=== PATIENT | male | born 1955 | race Caucasian/White ===

== ENCOUNTER → 2017-11-08 12:35 | Outpatient (CLI) | payer MEDICARE, MEDICAID, SELFPAY ==
[2017-11-08 18:17] LABS: Amphetamine/Metha Screen,Urine Negative ng/mL (<1000); Barbiturates Screen,Urine Negative ng/mL (<200); Benzodiazepines Screen,Urine Positive ng/mL (200); Cannabinoid Screen,Urine Negative ng/mL (<50); Cocaine Screen,Urine Negative ng/g (<300); Methadone Screen,Urine Negative ng/mL (<300); Opiate Screen,Urine Negative ng/mL (<300); Phencyclidine Screen,Urine Negative ng/mL (<25)
== END ==
PROVIDERS: Visit Provider Emergency Medicine
DX: Z79.899 Other long term (current) drug therapy (principal)
CPT/HCPCS: 80305

== ENCOUNTER → 2018-02-03 14:47 | Outpatient (REF) | payer MEDICARE, MEDICAID, SELFPAY ==
[2018-02-03 18:30] LABS: Amphetamine/Metha Screen,Urine Negative ng/mL (<1000); Barbiturates Screen,Urine Negative ng/mL (<200); Benzodiazepines Screen,Urine Positive ng/mL (200); Cannabinoid Screen,Urine Negative ng/mL (<50); Cocaine Screen,Urine Negative ng/g (<300); Methadone Screen,Urine Negative ng/mL (<300); Opiate Screen,Urine Negative ng/mL (<300); Phencyclidine Screen,Urine Negative ng/mL (<25)
== END ==
LOC: LAB 14:47
PROVIDERS: Visit Provider Emergency Medicine
DX: Z79.899 Other long term (current) drug therapy (principal)
CPT/HCPCS: 80305

== ENCOUNTER → 2018-10-29 13:20 | Outpatient (CLI) | payer MEDICARE, MEDICAID, SELFPAY ==
[2018-10-29 14:01] LABS: Basophils % 0.4 % (0.1-2.0); Eosinophils # 0.1 K/mm3 (0.0-0.4); Eosinophils % 0.8 % (0.1-12.0); Hematocrit 46.3 % (42.0-52.0); Hemoglobin 15.2 g/dL (14.1-18.0); Lymphocytes # 1.9 K/mm3 (0.7-4.5); Lymphocytes % 27.6 % (10-50); Mean Corpuscular HGB Conc 32.8 g/dL (31.8-35.4); Mean Corpuscular Hemoglobin 29.1 pg (27.0-31.2); Mean Corpuscular Volume 88.7 fl (80-94); Monocytes # 0.3 K/mm3 (0.1-1.0); Monocytes % 4.5 % (1.7-9.3); Neutrophils # 4.6 K/mm3 (1.8-7.8); Neutrophils % 66.6 % (37.0-80.0); Platelet Count 254 K/mm3 (142-424); Red Blood Count 5.22 M/mm3 (4.60-6.20); Red Cell Distribution Width 13.6 % (11.5-17.5); White Blood Count 6.9 K/mm3 (4.8-10.8)
[2018-10-29 14:49] LABS: Alanine Aminotransferase 25 U/L (12-78); Albumin Level 4.2 gm/dL (3.4-5.0); Albumin/Globulin Ratio 1.1 (1.1-1.8); Alkaline Phosphatase 81 U/L (46-116); Anion Gap 13.9 mEq/L (5-15); Aspartate Amino Transferase 21 U/L (15-37); Bilirubin,Total 0.4 mg/dL (0.2-1.0); Blood Urea Nitrogen 16 mg/dL (7-18); Carbon Dioxide 29 mmol/L (21.0-32.0); Chloride 104 mmol/L (98-107); Chol/HDL Ratio 4.3 (1-3.5); Cholesterol 208 mg/dL (140-200); Estimated Glomerular Filt Rate 75 ml/min (>60); Free T4 (Free Thyroxine) 0.92 ng/dl (0.76-1.46); GFR (African American) 91 ML/MIN (>60); Globulin 3.7 gm/dl (1.3-3.2); Glucose 100 mg/dL (74-106); HDL Cholesterol 48 mg/dL (27-67); LDL Cholesterol 133 mg/dL (0-130); Potassium 4.9 mmoL/L (3.5-5.1); Sodium 142 mmol/L (136-145); Thyroid Stimulating Hormone 1.66 uIU/ml (0.358-3.740); Total Protein,Serum 7.9 gm/dL (6.4-8.2); Triglycerides 136 mg/dL (30-200); VLDL Cholesterol 27 mg/dL (0-40)
[2018-10-29 15:14] LABS: Amphetamine/Metha Screen,Urine Negative ng/mL (<1000); Barbiturates Screen,Urine Negative ng/mL (<200); Benzodiazepines Screen,Urine Negative ng/mL (<200); Cannabinoid Screen,Urine Negative ng/mL (<50); Cocaine Screen,Urine Negative ng/mL (<300); Methadone Screen,Urine Negative ng/mL (<300); Opiate Screen,Urine Negative ng/mL (<300); Phencyclidine Screen,Urine Negative ng/mL (<25)
== END ==
PROVIDERS: Visit Provider Emergency Medicine
DX: I10 Essential (primary) hypertension (principal); Z79.899 Other long term (current) drug therapy
CPT/HCPCS: 80053; 80061; 80305; 84439; 84443; 85025

== ENCOUNTER → 2019-01-23 13:48 | Outpatient (CLI) | payer MEDICARE, MEDICAID, SELFPAY ==
[2019-01-23 14:59] LABS: Amphetamine/Metha Screen,Urine Negative ng/mL (<1000); Barbiturates Screen,Urine Negative ng/mL (<200); Benzodiazepines Screen,Urine Positive ng/mL (<200); Cannabinoid Screen,Urine Negative ng/mL (<50); Cocaine Screen,Urine Negative ng/mL (<300); Methadone Screen,Urine Negative ng/mL (<300); Opiate Screen,Urine Negative ng/mL (<300); Phencyclidine Screen,Urine Negative ng/mL (<25)
== END ==
PROVIDERS: Visit Provider Emergency Medicine
DX: Z79.899 Other long term (current) drug therapy (principal)
CPT/HCPCS: 80305

== ENCOUNTER → 2019-02-11 12:40 | Outpatient (CLI) | payer MEDICARE, MEDICAID, SELFPAY ==
--- NOTE | 2019-02-11 12:43 | NM_ITS ---
CARDIOLITE SPECT MYOCARDIAL PERFUSION LEXISCAN, REST AND STRESS: History: Coronary disease, hypertension, hyperlipidemia, tobacco use, family history, chest pain, shortness of breath and fatigue Procedure: Patient received a 0.4 mg of intravenous Lexiscan, resting heart rate was 65 bpm resting blood pressure 147/92, with Lexiscan maximum heart rate achieved was 95 bpm which is less than 85% of the maximum predicted heart rate and a blood pressure was 140/84. With Lexiscan patient complained of chest pressure and shortness of breath Electrocardiogram: Resting electrocardiogram showed sinus rhythm, with Lexiscan there is less than 1.[address] segment depression noted from the baseline EKG. The EKG portion of the Lexiscan Myoview is nondiagnostic. Cardiac stress and resting SPECT images: Cardiac stress and resting SPECT images were obtained using technetium 99 Myoview 31.8 mCi at stress and 9.8 mCi at rest. Gated SPECT further analysis of segmental wall motion and calculation of the ejection fraction also done. Cardiac stress and resting SPECT show uniform myocardial activity without segmental perfusion abnormality, computer derived ejection fraction is 41% with no regional wall motion abnormality, right ventricle is normal size and contractility. Conclusion: 1. The EKG portion of the Lexiscan Myoview is nondiagnostic. 2. No scintigraphic evidence of reversible ischemia seen, computer derived ejection fraction is 41% with no regional wall motion abnormality, right ventricle is normal size and contractility. Visually estimated ejection fraction appears to be 50%.
--- NOTE | 2019-02-11 14:11 | HMH.ITSHM ---
Current Home Medications as stated by this patient Kaleb Austin or new accounts representative. []gabapentin xanex doxizosin aspirin
== END ==
PROVIDERS: PCP Emergency Medicine; Visit Provider Physician Assistant
DX: I25.119 Atherosclerotic heart disease of native coronary artery with unspecified angina pectoris (principal); R07.9 Chest pain, unspecified
CPT/HCPCS: 78452; 93017; A9502; J2785

== ENCOUNTER → 2019-04-09 13:01 | Outpatient (CLI) | payer MEDICARE, MEDICAID, SELFPAY ==
--- NOTE | 2019-04-09 13:21 | XR_ITS ---
PROCEDURE: XR CHEST 2V CLINICAL HISTORY: cough, granuloma on LHC Cough, chest pain tightness, smoker COMPARISON: CXR1 CHEST-PORTABLE from 05/08/2015 FINDINGS: The cardiomediastinal silhouette and pulmonary vascularity are within normal limits. COPD with hyperinflation and coarsening of the bronchovascular markings. No acute bony abnormalities. IMPRESSION: COPD, no acute finding Dictated by: Vern Maloney MD 04/09/2019 13:53 Signed by: <Electronically signed by Vern Maloney MD in [facility]> 04/09/2019 13:53
== END ==
PROVIDERS: PCP Emergency Medicine; Visit Provider Urology
DX: I10 Essential (primary) hypertension (principal); I25.10 Atherosclerotic heart disease of native coronary artery without angina pectoris; R06.02 Shortness of breath; Z72.0 Tobacco use
CPT/HCPCS: 71046; 93306

== ENCOUNTER → 2019-07-22 14:44 | Outpatient (CLI) | payer MEDICARE, MEDICAID, SELFPAY ==
[2019-07-22 16:10] LABS: Amphetamine/Metha Screen,Urine Negative ng/mL (<1000); Barbiturates Screen,Urine Negative ng/mL (<200); Benzodiazepines Screen,Urine Positive ng/mL (<200); Cannabinoid Screen,Urine Negative ng/mL (<50); Cocaine Screen,Urine Negative ng/mL (<300); Methadone Screen,Urine Negative ng/mL (<300); Opiate Screen,Urine Negative ng/mL (<300); Phencyclidine Screen,Urine Negative ng/mL (<25)
== END ==
PROVIDERS: Visit Provider Emergency Medicine
DX: G89.29 Other chronic pain (principal)
CPT/HCPCS: 80305

== ENCOUNTER → 2019-10-19 13:38 | Outpatient (CLI) | payer MEDICARE, MEDICAID, SELFPAY ==
[2019-10-19 15:51] LABS: Barbiturates Screen,Urine Negative ng/ml (<200)
[2019-10-19 15:52] LABS: Amphetamine/Metha Screen,Urine Negative ng/ml (<1000); Benzodiazepines Screen,Urine Positive ng/ml (<200)
[2019-10-19 15:54] LABS: Cannabinoid Screen,Urine Negative ng/ml (<50)
[2019-10-19 15:55] LABS: Cocaine Screen,Urine Negative ng/ml (<300); Methadone Screen,Urine Negative ng/ml (<300)
[2019-10-19 15:57] LABS: Opiate Screen,Urine Negative ng/ml (<300); Phencyclidine Screen,Urine Negative ng/ml (<25)
== END ==
PROVIDERS: Visit Provider Emergency Medicine
DX: Z79.899 Other long term (current) drug therapy (principal)
CPT/HCPCS: 80305

== ENCOUNTER → 2019-12-28 15:14 | Outpatient (CLI) | payer MEDICARE, MEDICAID, SELFPAY ==
[2019-12-28 17:40] LABS: Prostate Specific Ag Screen 1.5 ng/ml (0.0-4.0)
== END ==
PROVIDERS: Visit Provider Urology
DX: Z12.5 Encounter for screening for malignant neoplasm of prostate (principal)
CPT/HCPCS: 36415; G0103

== ENCOUNTER → 2020-01-21 09:48 | Outpatient (CLI) | payer MEDICARE, MEDICAID, SELFPAY | PROVIDERS: PCP Emergency Medicine; Visit Provider Emergency Medicine | DX: J44.9 Chronic obstructive pulmonary disease, unspecified (principal) | CPT/HCPCS: 94060; 94618; 94726; 94729 ==

== ENCOUNTER → 2020-10-10 14:38 | Outpatient (CLI) | payer MEDICARE, MEDICAID, SELFPAY ==
[2020-10-10 16:01] LABS: Chloride 105 mmol/L (98-107); Potassium 4.3 mmoL/L (3.5-5.1); Sodium 140 mmol/L (136-145)
[2020-10-10 16:03] LABS: Blood Urea Nitrogen 20 mg/dl (9-20); Estimated Glomerular Filt Rate 85 ml/min (>60); GFR (African American) 102 ML/MIN (>60)
[2020-10-10 16:04] LABS: Alanine Aminotransferase 20 U/L (12-78); Albumin Level 4.6 g/dl (3.5-5.0); Albumin/Globulin Ratio 1.4 (1.1-1.8); Alkaline Phosphatase 80 U/L (38-126); Anion Gap 11.3 mEq/L (5-15); Aspartate Amino Transferase 26 U/L (17-59); Basophils % 0.5 % (0.1-2.0); Bilirubin,Total 0.6 mg/dl (0.2-1.3); Calcium 9.8 mg/dl (8.4-10.2); Carbon Dioxide 28 mmol/L (22.0-30.0); Cholesterol 210 mg/dl (140-200); Eosinophils # 0.1 K/mm3 (0.0-0.4); Eosinophils % 1.7 % (0.1-12.0); Globulin 3.2 g/dL (1.3-3.2); Glucose 101 mg/dl (74-100); Hematocrit 43.9 % (42.0-52.0); Hemoglobin 14.6 g/dL (14.1-18.0); Lymphocytes # 1.8 K/mm3 (0.7-4.5); Lymphocytes % 30.3 % (10-50); Mean Corpuscular HGB Conc 33.4 g/dL (31.8-35.4); Mean Corpuscular Hemoglobin 29.2 pg (27.0-31.2); Mean Corpuscular Volume 87.4 fl (80-94); Mean Platelet Volume 8.8 fl (7.4-10.4); Monocytes # 0.4 K/mm3 (0.1-1.0); Monocytes % 7.4 % (1.7-9.3); Neutrophils # 3.5 K/mm3 (1.8-7.8); Neutrophils % 60.2 % (37.0-80.0); Platelet Count 230 K/mm3 (142-424); Red Blood Count 5.02 M/mm3 (4.60-6.20); Red Cell Distribution Width 13.9 % (11.5-17.5); Total Protein,Serum 7.8 g/dl (6.3-8.2); Triglycerides 124 mg/dl (30-150); VLDL Cholesterol 25 mg/dL (0-40); White Blood Count 5.8 K/mm3 (4.8-10.8)
[2020-10-10 16:05] LABS: Chol/HDL Ratio 4.3 (1-3.5); HDL Cholesterol 49 mg/dl (40-60)
[2020-10-10 16:15] LABS: Direct LDL Cholesterol 115.53 mg/dL (100-129)
[2020-10-10 16:25] LABS: 25-OH Vitamin D, Total 26.5 ng/mL (30-100)
[2020-10-10 16:35] LABS: Thyroid Stimulating Hormone 1.92 uIU/mL (0.465-4.68)
[2020-10-10 21:09] LABS: Barbiturates Screen,Urine Negative ng/ml (<200)
[2020-10-10 21:10] LABS: Benzodiazepines Screen,Urine Positive ng/ml (<200)
[2020-10-10 21:11] LABS: Amphetamine/Metha Screen,Urine Negative ng/ml (<1000); Cannabinoid Screen,Urine Negative ng/ml (<50)
[2020-10-10 21:12] LABS: Cocaine Screen,Urine Negative ng/ml (<300)
[2020-10-10 21:13] LABS: Methadone Screen,Urine Negative ng/ml (<300); Opiate Screen,Urine Negative ng/ml (<300)
[2020-10-10 21:14] LABS: Phencyclidine Screen,Urine Negative ng/ml (<25)
== END ==
PROVIDERS: Visit Provider Emergency Medicine
DX: R53.83 Other fatigue (principal); E78.5 Hyperlipidemia, unspecified; E55.9 Vitamin D deficiency, unspecified; N52.9 Male erectile dysfunction, unspecified; G89.29 Other chronic pain
CPT/HCPCS: 80053; 80061; 80305; 82306; 84439; 84443; 85025

== ENCOUNTER → 2021-01-10 13:56 | Outpatient (CLI) | payer MEDICARE, MEDICAID, SELFPAY ==
[2021-01-10 14:20] LABS: Barbiturates Screen,Urine Negative ng/ml (<200)
[2021-01-10 14:21] LABS: Benzodiazepines Screen,Urine Positive ng/ml (<200)
[2021-01-10 14:22] LABS: Cocaine Screen,Urine Negative ng/ml (<300); Methadone Screen,Urine Negative ng/ml (<300)
[2021-01-10 14:23] LABS: Opiate Screen,Urine Negative ng/ml (<300)
[2021-01-10 14:24] LABS: Phencyclidine Screen,Urine Negative ng/ml (<25)
[2021-01-10 14:57] LABS: Amphetamine/Metha Screen,Urine Negative ng/ml (<1000)
[2021-01-10 16:37] LABS: Cannabinoid Screen,Urine Negative ng/ml (<50)
== END ==
PROVIDERS: Visit Provider Emergency Medicine
DX: G89.29 Other chronic pain (principal); M54.9 Dorsalgia, unspecified
CPT/HCPCS: 80305

== ENCOUNTER → 2021-01-16 15:15 | Outpatient (CLI) | payer MEDICARE, MEDICAID, SELFPAY ==
[2021-01-16 17:54] LABS: Prostate Specific Ag Screen 1.8 ng/ml (0.0-4.0)
== END ==
PROVIDERS: Visit Provider Urology
DX: Z12.5 Encounter for screening for malignant neoplasm of prostate (principal)
CPT/HCPCS: 36415; G0103

== ENCOUNTER → 2021-03-31 13:16 | Outpatient (CLI) | payer MEDICARE, MEDICAID, SELFPAY ==
--- NOTE | 2021-03-31 13:21 | XR_ITS ---
PROCEDURE: XR HIP RT 2-3V W/PELVIS CLINICAL INDICATION: Rt hip pain COMPARISON: No exams were available for comparison FINDINGS: No fracture or dislocation is evident. No significant degenerative change. No lytic or blastic change. Unremarkable soft tissues. IMPRESSION: No acute findings. Dictated by: Vern Maloney MD 03/31/2021 14:42 Vern Maloney MD in [facility] 03/31/2021 14:42
--- NOTE | 2021-03-31 14:36 | XR_ITS ---
PROCEDURE: XR KNEE RT 4V CLINICAL INDICATION: Rt knee pain COMPARISON: CR KNEE3R KNEE-3 VIEWS-RT from 08/25/2013 CR KNEE3R KNEE-3 VIEWS-RT from 09/14/2016 CR KNEE3R KNEE-3 VIEWS-RT from 01/23/2017 CR KNEE3L KNEE-3 VIEWS-LT from 01/23/2017 FINDINGS: No fracture or dislocation. No lytic or blastic change. There is normal mineralization. There are minimal osteoarthritic changes at the patellofemoral joint and there is some minimal spurring along the lateral tibial spine. Minimal chondrocalcinosis medial and lateral meniscus. Other findings:None. IMPRESSION: There are mild degenerative changes which have slightly progressed from the previous exam Dictated by: Vern Maloney MD 03/31/2021 14:52 Vern Maloney MD in [facility] 03/31/2021 14:52
== END ==
PROVIDERS: PCP Emergency Medicine; Visit Provider Orthopaedic Surgery
DX: M25.561 Pain in right knee (principal); M25.551 Pain in right hip
CPT/HCPCS: 73502; 73564

== ENCOUNTER → 2021-05-16 17:34 | Outpatient (CLI) | payer MEDICARE, MEDICAID, SELFPAY ==
[2021-05-16 21:44] LABS: Barbiturates Screen,Urine Negative ng/ml (<200)
[2021-05-16 21:45] LABS: Benzodiazepines Screen,Urine Positive ng/ml (<200)
[2021-05-16 21:46] LABS: Amphetamine/Metha Screen,Urine Negative ng/ml (<1000); Cocaine Screen,Urine Negative ng/ml (<300)
[2021-05-16 21:47] LABS: Cannabinoid Screen,Urine Negative ng/ml (<50); Methadone Screen,Urine Negative ng/ml (<300)
[2021-05-16 21:48] LABS: Opiate Screen,Urine Negative ng/ml (<300)
[2021-05-16 21:49] LABS: Phencyclidine Screen,Urine Negative ng/ml (<25)
== END ==
PROVIDERS: Visit Provider Emergency Medicine
DX: G89.29 Other chronic pain (principal); Z79.899 Other long term (current) drug therapy
CPT/HCPCS: 80305

== ENCOUNTER → 2021-08-24 17:47 | Outpatient (CLI) | payer MEDICARE, MEDICAID, SELFPAY | PROVIDERS: Visit Provider Nurse Practitioner | DX: Z20.822 Contact with and (suspected) exposure to COVID-19 (principal) | CPT/HCPCS: C9803; U0003; U0005 ==

== ENCOUNTER → 2021-09-05 17:55 | Outpatient (CLI) | payer MEDICARE, MEDICAID, SELFPAY ==
[2021-09-05 19:46] LABS: Amphetamine/Metha Screen,Urine Negative ng/ml (<1000)
[2021-09-05 19:47] LABS: Barbiturates Screen,Urine Negative ng/ml (<200); Benzodiazepines Screen,Urine Positive ng/ml (<200)
[2021-09-05 19:48] LABS: Cannabinoid Screen,Urine Negative ng/ml (<50)
[2021-09-05 19:49] LABS: Cocaine Screen,Urine Negative ng/ml (<300); Methadone Screen,Urine Negative ng/ml (<300)
[2021-09-05 19:50] LABS: Opiate Screen,Urine Negative ng/ml (<300); Phencyclidine Screen,Urine Negative ng/ml (<25)
== END ==
PROVIDERS: Visit Provider Emergency Medicine
DX: G89.29 Other chronic pain (principal); Z79.899 Other long term (current) drug therapy
CPT/HCPCS: 80305

== ENCOUNTER → 2021-11-01 17:00 | Outpatient (CLI) | payer MEDICARE, MEDICAID, SELFPAY ==
[2021-11-01 21:19] LABS: Amphetamine/Metha Screen,Urine Negative ng/ml (<1000)
[2021-11-01 21:20] LABS: Barbiturates Screen,Urine Negative ng/ml (<200); Benzodiazepines Screen,Urine Positive ng/ml (<200)
[2021-11-01 21:21] LABS: Cannabinoid Screen,Urine Negative ng/ml (<50)
[2021-11-01 21:22] LABS: Cocaine Screen,Urine Negative ng/ml (<300); Methadone Screen,Urine Negative ng/ml (<300)
[2021-11-01 21:23] LABS: Opiate Screen,Urine Negative ng/ml (<300); Phencyclidine Screen,Urine Negative ng/ml (<25)
== END ==
PROVIDERS: Visit Provider Emergency Medicine
DX: G89.29 Other chronic pain (principal); Z79.899 Other long term (current) drug therapy
CPT/HCPCS: 80305

== ENCOUNTER → 2022-01-23 07:00 | Outpatient (CLI) | payer MEDICARE, MEDICAID, SELFPAY ==
[2022-01-22 18:13] LABS: Amphetamine/Metha Screen,Urine Negative ng/ml (<1000)
[2022-01-22 18:14] LABS: Barbiturates Screen,Urine Negative ng/ml (<200)
[2022-01-22 18:16] LABS: Benzodiazepines Screen,Urine Positive ng/ml (<200); Cannabinoid Screen,Urine Negative ng/ml (<50)
[2022-01-22 18:17] LABS: Cocaine Screen,Urine Negative ng/ml (<300)
[2022-01-22 18:18] LABS: Methadone Screen,Urine Negative ng/ml (<300); Opiate Screen,Urine Negative ng/ml (<300)
[2022-01-22 18:19] LABS: Phencyclidine Screen,Urine Negative ng/ml (<25)
== END ==
PROVIDERS: PCP Emergency Medicine; Visit Provider Emergency Medicine
DX: G89.29 Other chronic pain (principal); Z79.899 Other long term (current) drug therapy
CPT/HCPCS: 80305

== ENCOUNTER → 2022-04-20 21:00 | Outpatient (CLI) | payer MEDICARE, MEDICAID, SELFPAY ==
[2022-04-20 15:50] LABS: Amphetamine/Metha Screen,Urine Negative ng/ml (<1000)
[2022-04-20 15:51] LABS: Barbiturates Screen,Urine Negative ng/ml (<200)
[2022-04-20 16:04] LABS: Benzodiazepines Screen,Urine Positive ng/ml (<200)
[2022-04-20 16:05] LABS: Cannabinoid Screen,Urine Negative ng/ml (<50)
[2022-04-20 16:06] LABS: Cocaine Screen,Urine Negative ng/ml (<300); Methadone Screen,Urine Negative ng/ml (<300)
[2022-04-20 16:07] LABS: Opiate Screen,Urine Negative ng/ml (<300)
[2022-04-20 16:08] LABS: Phencyclidine Screen,Urine Negative ng/ml (<25)
== END ==
PROVIDERS: PCP Emergency Medicine; Visit Provider Emergency Medicine
DX: G89.29 Other chronic pain (principal); Z79.899 Other long term (current) drug therapy
CPT/HCPCS: 80305

== ENCOUNTER → 2022-07-18 14:05 | Outpatient (CLI) | payer MEDICARE, MEDICAID, SELFPAY ==
[2022-07-18 15:07] LABS: Alanine Aminotransferase 15 U/L (12-78); Albumin Level 4.5 g/dl (3.5-5.0); Albumin/Globulin Ratio 1.6 (1.1-1.8); Alkaline Phosphatase 106 U/L (38-126); Anion Gap 11.8 mEq/L (5-15); Aspartate Amino Transferase 26 U/L (17-59); Bilirubin,Total 0.4 mg/dl (0.2-1.3); Blood Urea Nitrogen 21 mg/dl (9-20); Carbon Dioxide 29 mmol/L (22.0-30.0); Chloride 105 mmol/L (98-107); Cholesterol 198 mg/dl (140-200); Estimated Glomerular Filt Rate 67 ml/min (>60); GFR (African American) 81 ML/MIN (>60); Globulin 2.9 g/dL (1.3-3.2); Glucose 108 mg/dl (74-100); HDL Cholesterol 50 mg/dl (40-60); Potassium 4.8 mmoL/L (3.5-5.1); Sodium 141 mmol/L (136-145); Total Protein,Serum 7.4 g/dl (6.3-8.2); Triglycerides 62 mg/dl (30-150); VLDL Cholesterol 12 mg/dL (0-40)
[2022-07-18 15:16] LABS: Basophils % 0.5 % (0.1-2.0); Eosinophils # 0.1 K/mm3 (0.0-0.4); Eosinophils % 0.8 % (0.1-12.0); Hemoglobin 15.6 g/dL (14.1-18.0); Lymphocytes # 2.2 K/mm3 (0.7-4.5); Lymphocytes % 29.2 % (10-50); Mean Corpuscular HGB Conc 31.2 g/dL (31.8-35.4); Mean Corpuscular Hemoglobin 28.7 pg (27.0-31.2); Mean Corpuscular Volume 91.9 fl (80-94); Mean Platelet Volume 8.7 fl (7.4-10.4); Monocytes # 0.4 K/mm3 (0.1-1.0); Monocytes % 5.7 % (1.7-9.3); Neutrophils # 4.9 K/mm3 (1.8-7.8); Neutrophils % 63.8 % (37.0-80.0); Platelet Count 303 K/mm3 (142-424); Red Blood Count 5.44 M/mm3 (4.60-6.20); White Blood Count 7.7 K/mm3 (4.8-10.8)
[2022-07-18 15:24] LABS: Free T4 (Free Thyroxine) 1.27 ng/dl (0.78-2.19)
[2022-07-18 15:39] LABS: Thyroid Stimulating Hormone 1.04 uIU/mL (0.465-4.68)
[2022-07-18 19:33] LABS: Amphetamine/Metha Screen,Urine Negative ng/ml (<1000)
[2022-07-18 19:34] LABS: Barbiturates Screen,Urine Negative ng/ml (<200)
[2022-07-18 19:35] LABS: Benzodiazepines Screen,Urine Positive ng/ml (<200); Cannabinoid Screen,Urine Negative ng/ml (<50)
[2022-07-18 19:36] LABS: Cocaine Screen,Urine Negative ng/ml (<300)
[2022-07-18 19:42] LABS: Methadone Screen,Urine Negative ng/ml (<300)
[2022-07-18 19:43] LABS: Opiate Screen,Urine Negative ng/ml (<300)
[2022-07-18 19:44] LABS: Phencyclidine Screen,Urine Negative ng/ml (<25)
== END ==
PROVIDERS: PCP Emergency Medicine; Visit Provider Emergency Medicine
DX: G89.29 Other chronic pain (principal); I10 Essential (primary) hypertension; E55.9 Vitamin D deficiency, unspecified
CPT/HCPCS: 80053; 80061; 80305; 82306; 84439; 84443; 85025

== ENCOUNTER → 2023-05-27 23:54 | Outpatient (CLI) | payer MEDICARE, MEDICAID, SELFPAY ==
[2023-05-27 19:59] LABS: Barbiturates Screen,Urine Negative ng/ml (<200)
[2023-05-27 20:00] LABS: Amphetamine/Metha Screen,Urine Negative ng/ml (<1000); Cannabinoid Screen,Urine Positive ng/ml (<50)
[2023-05-27 20:01] LABS: Benzodiazepines Screen,Urine Negative ng/ml (<200)
[2023-05-27 20:02] LABS: Cocaine Screen,Urine Negative ng/ml (<300); Methadone Screen,Urine Negative ng/ml (<300)
[2023-05-27 20:07] LABS: Opiate Screen,Urine Negative ng/ml (<300); Phencyclidine Screen,Urine Negative ng/ml (<25)
== END ==
PROVIDERS: PCP Emergency Medicine; Visit Provider Emergency Medicine
DX: Z79.899 Other long term (current) drug therapy (principal)
CPT/HCPCS: 80305

== ENCOUNTER 2023-09-06 12:13 | Outpatient (CLI) | payer MEDICARE, MEDICAID, SELFPAY ==
[2023-09-06 12:21] LABS: Basophils # 0.1 K/mm3 (0-0.2); Basophils % 0.9 % (0.1-2.0); Eosinophils # 0.1 K/mm3 (0.0-0.4); Eosinophils % 1.3 % (0.1-12.0); Hematocrit 48.7 % (42.0-52.0); Hemoglobin 16.3 g/dL (14.1-18.0); Lymphocytes % 25.8 % (10-50); Mean Corpuscular HGB Conc 33.5 g/dL (31.8-35.4); Mean Corpuscular Hemoglobin 30.1 pg (27.0-31.2); Mean Corpuscular Volume 89.8 fl (80-94); Mean Platelet Volume 8.5 fl (7.4-10.4); Monocytes # 0.5 K/mm3 (0.1-1.0); Monocytes % 5.7 % (1.7-9.3); Neutrophils # 5.2 K/mm3 (1.8-7.8); Neutrophils % 66.4 % (37.0-80.0); Platelet Count 241 K/mm3 (142-424); Red Blood Count 5.42 M/mm3 (4.60-6.20); Red Cell Distribution Width 13.7 % (11.5-17.5); White Blood Count 7.8 K/mm3 (4.8-10.8)
[2023-09-06 12:35] LABS: Alanine Aminotransferase 29 U/L (12-78); Albumin Level 4.6 g/dl (3.5-5.0); Albumin/Globulin Ratio 1.5 (1.1-1.8); Alkaline Phosphatase 80 U/L (38-126); Anion Gap 14.4 mEq/L (5-15); Aspartate Amino Transferase 36 U/L (17-59); Bilirubin,Total 0.5 mg/dl (0.2-1.3); Blood Urea Nitrogen 23 mg/dl (9-20); Calcium 9.8 mg/dl (8.4-10.2); Carbon Dioxide 29 mmol/L (22.0-30.0); Chloride 99 mmol/L (98-107); Chol/HDL Ratio 3.9 (1-3.5); Cholesterol 240 mg/dl (140-200); Estimated Glomerular Filt Rate 84 ml/min (>60); GFR (African American) 102 ML/MIN (>60); Glucose 104 mg/dl (74-100); HDL Cholesterol 61 mg/dl (40-60); Potassium 4.4 mmoL/L (3.5-5.1); Sodium 138 mmol/L (136-145); Total Protein,Serum 7.6 g/dl (6.3-8.2); Triglycerides 106 mg/dl (30-150); VLDL Cholesterol 21 mg/dL (0-40)
[2023-09-06 12:46] LABS: Direct LDL Cholesterol 119.63 mg/dL (100-129)
[2023-09-06 13:08] LABS: Prostate Specific Ag Screen 2.3 ng/ml (0.0-4.0); Thyroid Stimulating Hormone 1.31 uIU/mL (0.465-4.68)
[2023-09-06 14:51] LABS: Amphetamine/Metha Screen,Urine Negative ng/ml (<1000)
[2023-09-06 14:52] LABS: Barbiturates Screen,Urine Negative ng/ml (<200); Benzodiazepines Screen,Urine Negative ng/ml (<200)
[2023-09-06 14:53] LABS: Cannabinoid Screen,Urine Negative ng/ml (<50)
[2023-09-06 14:54] LABS: Cocaine Screen,Urine Negative ng/ml (<300); Methadone Screen,Urine Negative ng/ml (<300)
[2023-09-06 14:55] LABS: Opiate Screen,Urine Negative ng/ml (<300)
[2023-09-06 14:56] LABS: Phencyclidine Screen,Urine Negative ng/ml (<25)
== END 2023-09-06 23:59 ==
LOC: LAB.DROPOF 12:14
PROVIDERS: PCP Family Medicine; Visit Provider Family Medicine
DX: J44.9 Chronic obstructive pulmonary disease, unspecified (principal); Z79.899 Other long term (current) drug therapy; E78.5 Hyperlipidemia, unspecified; R00.0 Tachycardia, unspecified; Z12.5 Encounter for screening for malignant neoplasm of prostate
CPT/HCPCS: 80053; 80061; 80307; 84443; 85025; G0103

== ENCOUNTER 2023-10-01 15:35 | Outpatient (CLI) | payer MEDICARE, MEDICAID, SELFPAY ==
--- NOTE | 2023-10-01 15:36 | CT_ITS ---
FINAL REPORT TECHNIQUE: Thin section axial images were obtained from the lung apices to the upper abdomen by computed tomography. Reformatted images were obtained and reviewed. This study was performed with techniques to keep radiation doses al low as reasonably achievable (ALARA). Individualized dose reduction techniques using automated exposure control or adjustment of mA and/or kV according to the patient's size were employed. CLINICAL HISTORY: lung cancer screening 1 x 50 years COMPARISON: None FINDINGS: CHEST CT LOW DOSE 68-year-old male, current smoker, 90-[id number] history. CTDI vol (mGy): 2.9 DLP (mGy-cm): 102.64 There is no axillary adenopathy. There is no mediastinal or hilar mass or adenopathy. The heart is normal in size. There is no pericardial or pleural effusion. Lung window images demonstrate a nodule in the posterior right lower lobe measuring 5 mm in size, best seen on image #39. There is also a 6 mm node in the posterior left lower lobe, also best seen on image #39. There is a densely calcified subcarinal node present.. Limited images of the upper abdomen remarkable for a low-attenuation mass in the left adrenal gland measuring 1.5 cm in diameter, favor an adenoma.. IMPRESSION: Lung-RADS category 3. Recommend 6 month follow up low dose chest CT. Reviewed, Interpreted and Dictated by Ramón Spann MD Transcribed by Jeane Cummings Authenticated and [facility]
== END 2023-10-01 23:59 ==
LOC: RAD 15:36
PROVIDERS: PCP Family Medicine; Visit Provider Family Medicine
DX: Z87.891 Personal history of nicotine dependence (principal)
CPT/HCPCS: 71271

== ENCOUNTER 2023-11-18 11:26 | Day surgery (SDC) | payer MEDICARE, MEDICAID, SELFPAY ==
[2023-11-15 08:57] VITALS: BMI 28.7
--- NOTE | 2023-11-18 10:20 | P.PCN_ITS ---
Procedure: Date: 11/18/23 Patient Date of :: 1955 Procedure Performed:: Total colonoscopy with polypectomy Indications:: . Patient is a 68-year-old male. He presents after being scheduled for screening colonoscopy. I had performed colonoscopy on him in 2007 which was limited due to fair colonic preparation and I had recommended close follow-up colonoscopy following that. He presented for his next colonoscopy elevan years later on 12/30/2018 which revealed evidence of anal stenosis and he had 3 tubular adenomas and a couple of sessile serrated adenomas as well as several hyperplastic polyps. After his colonoscopy in 2018 and recommended repeat colonoscopy within 3 years. He states that his brother has recently undergone a colon resection for colon cancer and had to have reoperation with colostomy. . Performing Provider:: Kaleb Gonzalez MD Referring Provider:: Lanre Chandler MD Sedation:: MAC sedation Procedure:: Patient history was obtained and appropriate physical examination was performed. Patient's medications and allergies were reviewed. Informed consent was obtained after explaining the benefits, alternatives, and risks of the procedure including, but not limited to, bleeding, perforation, missed lesions, and adverse reaction to anesthesia medications. Patient was transported to endoscopy procedure room. Patient was connected to monitoring devices. Throughout the procedure the patient's blood pressure, pulse, and oxygen saturations were monitored continuously. Patient identification and planned procedure were verified by the staff. Patient was positioned in lateral decubitus position. Digital anorectal exam was performed. Variable stiffness Olympus colonoscope was inserted and advanced under direct visualization to the cecum. Adequacy of the colonic prep aration was noted. The colonoscope was advanced a short distance into the terminal ileum. The colonoscope was then slowly withdrawn while carefully examining the color, texture, anatomy, and integrity of the mucosoa circumferentially. Within the rectum retroflexion was performed. Colonoscope was then withdrawn. . There was some lack of relaxation and tortuosity to the colon. Near the hepatic flexure there was a moderate adenomatous polyp removed with generous margins using hot snare. At the completion small amount of Nadira ink was injected submucosally to laura the area for future reference. Colonoscope was then advanced once again and there was noted to be a tiny minuscule diminutive polyp removed with biopsy forceps. Colonoscope was then withdrawn. In the distal transverse colon there was a tiny diminutive polyp removed with cold cutting snare with generous margins. However, due to some particulate stool and vegetable matter it was unable to be retrieved despite thorough irrigation and suctioning and reinspection. Within the rectum he had circumferential internal hemorrhoids. Colonoscope was withdrawn. . Findings:: Small to moderate polyp at the hepatic flexure Tiny diminutive ascending polyp Small distal transverse polyp -not retrieved Rare diverticulosis Internal hemorrhoids Recommendations:: Likely repeat colonoscopy 3 years pending pathology given prior history and findings of polyps with family history Complications:: None immediate Estimated blood obtained (mL): 1 Colonoscopy Component Colonoscopy Component Was a colonoscopy performed during today's procedure?: Yes Recommended follow up colonoscopy of at least 10 years?: No If no, follow up colonoscopy recommended in ___ years?: 3 Reason for not recommending >/= 10 yr follow-up interval?: Polyps, family history
[2023-11-18 11:50] VITALS: BP 144/90; PULSE 91; RESP 18; TEMP 36.5; O2SAT 98
[2023-11-18] MEDS: LACTATED RINGERS 1000ML 1,000 ML 25 ML IV (12:00)
--- NOTE | 2023-11-18 12:04 | P.PNANES_ITS ---
[facility] Disclaimer: The information contained in this section may have been updated after the patient was seen, as this information can be updated by other users. Medical History Colonoscopy planned Typical angina COPD (chronic obstructive pulmonary disease) HLD (hyperlipidemia) CAD (coronary artery disease) Chronic pain after traumatic injury Chest pain Tobacco use Anxiety Hypertension Surgical History History of surgery Previous back surgery Family History Other Cancer Heart attack Hypertension Social History (Updated 11/18/23 @ 11:59 by Margarita Nichole RN) Smoking Status: Current every day smoker tobacco type: cigarettes packs per day: 1 alcohol intake: former substance use type: denies use current occupational status: disabled Travel in the last 8 weeks: None household members: family housing: house caffeine: Yes [facility] Anesthesia Checklist Patient Identification Patient Identification: Arm Band and Verbal (Name & ) Structural Data Admitted From: Home Planned Operative Procedure/s: Colonoscopy Consent for Planned Operative Procedure(s) Verified: Yes Verified Documents: Surgical Consent and History and Physical NPO Status Verified Time NPO: 10:30 Chart Verification Results Verified: CBC, BMP, ECG (ECHO EF 55-60%) and Chest Xray Additional verifications Patient : No Anesthesia Reactions: No Cardiovascular Assessment Heart Sounds: S1 & S2 Pulse Rhythm: Irregular Peripheral Edema: No Airway Assessment Mallampati Score:: Class II C-Spine Mobility Assessed: Yes (FROM) TMJ Mobility Assessed: Yes Dentition: Dentures-good fit (Nothing loose per pt.) Neurological Assessment Level of Consciousness: Awake, Alert, Appropriate and Follows Commands Hx Seizures: No Numbness or tingling in extremities: No Anesthesia Plan Anesthesia Risk discussed: Yes Anesthesia Plan: Verified ASA Class: III Anesthesia Type: MAC
[2023-11-18 12:15] VITALS: O2SAT 99
[2023-11-18 12:54] VITALS: BP 120/84; PULSE 75; RESP 18; TEMP 36.2; O2SAT 96
[2023-11-18 13:04] VITALS: BP 128/89; PULSE 81; RESP 18; O2SAT 98
[2023-11-18 13:13] VITALS: BP 120/82; PULSE 70; RESP 18; O2SAT 95
[2023-11-18 13:21] VITALS: BP 127/84; PULSE 66; RESP 18; O2SAT 98
== END 2023-11-18 13:23 | disposition home or self-care (01) ==
PROVIDERS: PCP Family Medicine; Visit Provider Surgery
PROC: 0DJD8ZZ Inspection of Lower Intestinal Tract, Via Natural or Artificial Opening Endoscopic (ICD-10-PCS; CPT 45380; principal; 2023-11-18 12:30)
DX: Z12.11 Encounter for screening for malignant neoplasm of colon (principal); Z80.0 Family history of malignant neoplasm of digestive organs; K63.5 Polyp of colon; D12.2 Benign neoplasm of ascending colon; K64.8 Other hemorrhoids; K57.90 Diverticulosis of intestine, part unspecified, without perforation or abscess without bleeding; Z86.010 Personal history of colon polyps
CPT/HCPCS: 45380; 45385; 88305

== ENCOUNTER 2023-12-04 18:00 | Outpatient (CLI) | payer MEDICARE, MEDICAID, SELFPAY ==
[2023-12-04 18:55] LABS: Amphetamine/Metha Screen,Urine Negative ng/ml (<1000)
[2023-12-04 18:56] LABS: Barbiturates Screen,Urine Negative ng/ml (<200)
[2023-12-04 18:57] LABS: Benzodiazepines Screen,Urine Positive ng/ml (<200); Cannabinoid Screen,Urine Negative ng/ml (<50)
[2023-12-04 18:59] LABS: Cocaine Screen,Urine Negative ng/ml (<300); Methadone Screen,Urine Negative ng/ml (<300)
[2023-12-04 19:00] LABS: Opiate Screen,Urine Negative ng/ml (<300); Phencyclidine Screen,Urine Negative ng/ml (<25)
== END 2023-12-04 23:59 | disposition home or self-care (01) ==
LOC: LAB.DROPOF 12-05 08:59
PROVIDERS: PCP Nurse Practitioner Acute Care; Visit Provider Nurse Practitioner Acute Care
DX: Z79.899 Other long term (current) drug therapy (principal)
CPT/HCPCS: 80307

== ENCOUNTER 2023-12-09 20:34 | Emergency (ER) | payer MEDICARE, MEDICAID, SELFPAY ==
--- NOTE | 2023-12-09 20:33 | ECG_ITS ---
APPROVED REPORT Exam: Resting ECG HR:82 bpm ECG Measurements Heart Rate 82 AXES CO 141 P 74 QRSd 89 QRS 74 QT 349 T 74 QTc 387 Conclusion SINUS RHYTHM NORMAL ECG UNCONFIRMED REPORT Electronically signed by : EULALIO GARRIDO, 12/10/2023 00:31:17
[2023-12-09 20:35] VITALS: BP 155/100; PULSE 78; RESP 16; TEMP 36.7; O2SAT 95; BMI 29.2
[2023-12-09 20:41] VITALS: PULSE 78
--- NOTE | 2023-12-09 20:42 | XR_ITS ---
PROCEDURE INFORMATION: Exam: XR Chest Exam date and time: 12/09/2023 9:04 PM Age: 68 years old Clinical indication: Pain; Chest pressure; Additional info: Cp TECHNIQUE: Imaging protocol: Radiologic exam of the chest. Views: 2 views. COMPARISON: CT LUNG SCREENING 01/10/2023 15:44 FINDINGS: Lungs: Unremarkable. No consolidation. Pleural spaces: Unremarkable. No pleural effusion. No pneumothorax. Heart/Mediastinum: Unremarkable. No cardiomegaly. Bones/joints: Unremarkable. IMPRESSION: No acute findings.
[2023-12-09 21:02] LABS: Basophils % 0.5 % (0.1-2.0); Eosinophils # 0.1 K/mm3 (0.0-0.4); Eosinophils % 1.7 % (0.1-12.0); Hemoglobin 13.7 g/dL (14.1-18.0); Lymphocytes # 1.4 K/mm3 (0.7-4.5); Lymphocytes % 23.8 % (10-50); Mean Corpuscular HGB Conc 33.3 g/dL (31.8-35.4); Mean Corpuscular Hemoglobin 29.7 pg (27.0-31.2); Mean Corpuscular Volume 89.2 fl (80-94); Mean Platelet Volume 7.6 fl (7.4-10.4); Monocytes # 0.4 K/mm3 (0.1-1.0); Monocytes % 7.3 % (1.7-9.3); Neutrophils % 66.6 % (37.0-80.0); Platelet Count 199 K/mm3 (142-424); Red Cell Distribution Width 14.2 % (11.5-17.5)
--- NOTE | 2023-12-09 21:03 | HMH.EDCP ---
Discharge Plan Disposition Patient Disposition: Left Against Medical Advice Condition: Good Prescriptions Prescriptions: No Action (DME) blood pressure monitor [Blood Pressure Kit] Kit See Rx Instructions .Route Qty: 1 0RF Rx Instructions: As directed alprazolam [Xanax] 2 mg tablet 1 mg PO BID Qty: 60 0RF gabapentin 800 mg tablet 800 mg PO TID Qty: 90 1RF omeprazole 20 mg capsule,delayed release(DR/EC) 20 mg PO DAILY Qty: 30 2RF doxazosin 4 mg tablet 4 mg PO DAILY Qty: 30 4RF hydrochlorothiazide 25 mg tablet See Rx Instructions .ROUTE .COMPLEX Qty: 90 1RF Dose Instruction: TAKE ONE TABLET BY MOUTH ONCE A DAY Rx Instructions: TAKE ONE TABLET BY MOUTH ONCE A DAY tadalafil 20 mg tablet See Rx Instructions .ROUTE .COMPLEX Qty: 30 0RF Dose Instruction: TAKE ONE TABLET BY MOUTH DIRECTED NEEDED (DO NOT TAKE WITHIN 4 HOURS OF TAKING DOXAZOSIN) Rx Instructions: TAKE ONE TABLET BY MOUTH DIRECTED NEEDED (DO NOT TAKE WITHIN 4 HOURS OF TAKING DOXAZOSIN) lisinopril 20 mg tablet 20 mg PO DAILY Qty: 90 3RF metoprolol succinate 50 mg tablet extended release 24 hr 50 mg PO DAILY Qty: 90 5RF nitroglycerin 0.4 mg tablet, sublingual 0.4 mg sublingual Q5M Qty: 30 2RF Rx Instructions: do not exceed 3 doses per episode duloxetine [Cymbalta] 30 mg capsule,delayed release(DR/EC) 30 mg PO DAILY Qty: 30 2RF alprazolam 1 mg tablet 1 mg PO TID PRN (Reason: anxiety) Qty: 90 0RF albuterol sulfate [Ventolin HFA] 90 mcg/actuation HFA aerosol inhaler See Rx Instructions .ROUTE .COMPLEX Qty: 18 3RF Dose Instruction: INHALE 1 PUFF BY MOUTH EVERY 4 TO 6 HOURS NEEDED FOR SHORTNESS OF BREATH OR WHEEZING Rx Instructions: INHALE 1 PUFF BY MOUTH EVERY 4 TO 6 HOURS NEEDED FOR SHORTNESS OF BREATH OR WHEEZING aspirin [Adult Low Dose Aspirin] 81 mg tablet,delayed release (DR/EC) 81 mg PO DAILY Qty: 100 3RF Referrals Follow up/Referrals: Xochitl Mirza APRN [Primary Care Provider] - See instructions Clinical Impressions Clinical Impression: Left against medical advice, Left-sided chest pain Discharge ED Provider: Ceasar Robbins HPI General Chief Complaint: Chest Pain Stated Complaint: cp Time Seen by Provider: 12/09/23 21:02 Mode of Arrival: Ambulatory Source of Information: Patient Limitations: No Limitations Description of Symptoms (Recalled from ER Triage Doc. by RN): pt c/o lt sharp chest pain that comes and go that started yesterday. pt states took SL Nitro @ 5pm with some relief History of Present Illness HPI narrative: 68-year-old male with past medical history significant for CAD, HLD, COPD, anxiety, HTN on lisinopril and metoprolol, PAD, presents today for evaluation concerning left-sided chest pain has been present for the past 2 weeks however worsened over the past 2 days. Characterizes a sharp sensation. Has associated shortness of breath. Has not had any fevers or chills. He does report that he has had tingling sensation in his bilateral lower extremities. He took nitroglycerin around 5 PM with improvement of his pain. Denies any lower extremity edema. States that he has been taking his blood pressure medications appropriately. No further complaints. Related Data Previous Rx's Medication Instructions Recorded albuterol sulfate 90 mcg/actuation See Rx Instructions .Route 10/10/20 aerosol inhaler (Ventolin HFA) .COMPLEX #18 grams blood pressure monitor (Blood #1 ea 05/15/22 Pressure Kit) aspirin 81 mg tablet,delayed 81 mg PO DAILY prevent #100 tabs 05/28/23 release (Adult Low Dose Aspirin) lisinopril 20 mg tablet 20 mg PO DAILY #90 tabs 06/24/23 metoprolol succinate 50 mg 50 mg PO DAILY #90 tabs 06/24/23 tablet,extended release 24 hr nitroglycerin 0.4 mg sublingual 0.4 mg sublingual Q5M #30 tabs 09/06/23 tablet alprazolam 2 mg tablet (Xanax) 1 mg (1/2 x 2 mg) PO BID #60 tabs 11/04/23 doxazosin 4 mg tablet 4 mg PO DAILY #30 tabs 11/04/23 gabapentin 800 mg tablet 800 mg PO TID #90 tabs 11/04/23 hydrochlorothiazide 25 mg tablet See Rx Instructions .Route 11/04/23 .COMPLEX #90 tabs omeprazole 20 mg capsule,delayed 20 mg PO DAILY #30 caps 11/04/23 release tadalafil 20 mg tablet See Rx Instructions .Route 11/04/23 .COMPLEX #30 tabs alprazolam 1 mg tablet 1 mg PO TID PRN anxiety #90 tabs 12/04/23 duloxetine 30 mg capsule,delayed 30 mg PO DAILY #30 caps 12/04/23 release (Cymbalta) Allergies Allergy/AdvReac Type Severity Reaction Status Date / Time No Known Allergies Allergy Verified 12/04/23 09:23 [facility] Disclaimer: The information contained in this section may have been updated after the patient was seen, as this information can be updated by other users. Medical History Colonoscopy planned Typical angina COPD (chronic obstructive pulmonary disease) HLD (hyperlipidemia) CAD (coronary artery disease) Chronic pain after traumatic injury Chest pain Tobacco use Anxiety Hypertension Surgical History History of surgery tumor removed Previous back surgery Family History Other Cancer Heart attack Hypertension Social History Smoking Status: Current every day smoker tobacco type: cigarettes packs per day: 1 alcohol intake: former substance use type: denies use current occupational status: disabled Travel in the last 8 weeks: None household members: family housing: house caffeine: Yes ROS Obtained: Yes All systems reviewed & no additional complaints except as documented Physical Exam General General appearance: alert and in no apparent distress Head Head exam: atraumatic and normocephalic Eye Eye exam: Present normal appearance, PERRL and EOMI ENT ENT exam: Present normal oropharynx and mucous membranes moist Neck Neck exam: Present full ROM; Absent meningismus Respiratory Respiratory exam: Absent respiratory distress, wheezes, stridor or accessory muscle use Cardiovascular Cardiovascular exam: Present normal rhythm Abdominal Exam Abdominal exam: Present soft; Absent distention, tenderness, guarding, rebound or rigidity Neurological Exam Neurological exam: Present alert, oriented X3 and CN II-XII intact; Absent motor sensory deficit Psychiatric Psychiatric exam: Present normal affect and normal mood Skin Skin exam: Present warm and dry HEART Score HEART Score HEART Score assessment performed?: Yes History (anamnesis): Moderately suspicious ECG: Normal Age: >65 years Risk factors: Atherosclerosis history Troponin: </= normal limit HEART Score: 5 Critical Care Critical Care Time Critical Care Time: No Medical Decision Making Faisal Inquiry Pt receiving controlled substance: No Vital Signs Vital Signs: 12/09/23 20:35 12/09/23 20:41 12/09/23 21:38 Temperature 98.0 F 98.1 F Temperature Source Oral Pulse Rate 78 90 Pulse Rate [Right] 78 Respiratory Rate 16 20 Blood Pressure 188/130 H Blood Pressure [Right Arm] 155/100 H Blood Pressure Mean [Right Arm] 118 02 Sat by Pulse Oximetry 95 Oxygen Delivery Method Room Air Lab Data Labs: Lab Results 12/09/23 20:45: WBC 6.0, RBC 4.60, Hgb 13.7 L, Hct 41.0 L, MCV 89.2, MCH 29.7, MCHC 33.3, RDW 14.2, Plt Count 199, MPV 7.6, Neut % (Auto) 66.6, Lymph % (Auto) 23.8, Summers % (Auto) 7.3, Eos % (Auto) 1.7, Baso % (Auto) 0.5, Neut # (Auto) 4.0, Lymph # (Auto) 1.4, Summers # (Auto) 0.4, Eos # (Auto) 0.1, Baso # (Auto) 0.0, Sodium 136, Potassium 3.4 L, Chloride 106, Carbon Dioxide 28, Anion Gap 5.4, BUN 19, Creatinine 0.90, Estimated Creat Clear 93, Estimated GFR 84, Est GFR ( Amer) 102, Glucose 109 H, Calcium 9.2, Total Bilirubin 0.6, AST 28, ALT 19, Alkaline Phosphatase 68, Troponin I < 0.01, Total Protein 6.5, Albumin 3.9, Globulin 2.6, Albumin/Globulin Ratio 1.5 12/09/23 20:45 12/09/23 20:45 Response Orders (Tests/Meds): ORDERS Category Date Time Status Chest XR 2 view (NOT portable) [XR chest 2V] Stat Exams 12/09/23 20:42 Completed Complete Blood Count Auto Diff Stat Lab 12/09/23 20:45 Completed Comprehensive Metabolic Panel Stat Lab 12/09/23 20:45 Completed Troponin I Stat Lab 12/09/23 20:45 Completed ECG Data Tracing #1: Attestation: I reviewed this ECG and interpreted as documented below: ECG Narrative: EKG personally interpreted by me. Normal sinus rhythm with a rate of 82 bpm. No ischemic changes. QTc 387. MDM Narrative Medical Decision Narrative: 68-year-old male with past medical history significant for CAD, HLD, COPD, anxiety, HTN on lisinopril and metoprolol, PAD, presents today for evaluation concerning left-sided chest pain has been present for the past 2 weeks however worsened over the past 2 days. Characterizes a sharp sensation. Has associated shortness of breath. Has not had any fevers or chills. He does report that he has had tingling sensation in his bilateral lower extremities. He took nitroglycerin around 5 PM with improvement of his pain. On assessment he was stable and in no acute distress. He was hypotensive with blood pressure of 168/120. Chest clear to auscultation bilaterally. Abdomen soft nondistended nontender palpation. No peripheral edema noted. Other physical exam findings unremarkable. Differential diagnoses include not limited to STEMI, NSTEMI, pleural effusion, pneumonia, musculoskeletal pain, ACS, COPD exacerbation, among others. Patient's lab work today has been remarkable for a WBC of 6. Initial troponin less than 0.01. CMP nonactionable. Chest x-ray with no acute cardiopulmonary disease processes on my informal interpretation. Radiology report confirmed. I received communication from nursing staff that patient has decided to leave the ED AMA. I did reassess patient and discussed current ED workup and results and recommendation to stay for further testing including second troponins in the setting of his chest pain and cardiac history. He stated that he had to leave to take care of outside responsibilities. I discussed the risks versus benefits and he verbalized understanding and agreement. He was subsequently allowed to leave the ED AMA. He was in no acute distress.
[2023-12-09 21:17] LABS: Chloride 106 mmol/L (98-107); Potassium 3.4 mmoL/L (3.5-5.1); Sodium 136 mmol/L (136-145)
[2023-12-09 21:20] LABS: Alanine Aminotransferase 19 U/L (12-78); Albumin Level 3.9 g/dl (3.5-5.0); Albumin/Globulin Ratio 1.5 (1.1-1.8); Alkaline Phosphatase 68 U/L (38-126); Anion Gap 5.4 mEq/L (5-15); Aspartate Amino Transferase 28 U/L (17-59); Bilirubin,Total 0.6 mg/dl (0.2-1.3); Blood Urea Nitrogen 19 mg/dl (9-20); Carbon Dioxide 28 mmol/L (22.0-30.0); Creatinine Clearance Estimated 93 mL/min (50-200); Estimated Glomerular Filt Rate 84 ml/min (>60); GFR (African American) 102 ML/MIN (>60); Globulin 2.6 g/dL (1.3-3.2); Total Protein,Serum 6.5 g/dl (6.3-8.2)
[2023-12-09 21:21] LABS: Calcium 9.2 mg/dl (8.4-10.2); Glucose 109 mg/dl (74-100)
--- NOTE | 2023-12-09 21:35 | PC.NURSE ---
pt states his girlfriend has to be back to sober living by a set curfew and if not shes gonna be kicked out so he needs to leave now. ER MD made aware and spoke with patient an patient signed AMA form. pt asked for paper showing he was here and RN stated we could not give him any documentation to provide his girlfriends residence program. pt stormed out of room
[2023-12-09 21:38] VITALS: BP 188/130; PULSE 90; RESP 20; TEMP 36.7; O2SAT 98
[2023-12-09 21:47] LABS: Troponin I < 0.01 ng/ml (0.00-0.034)
== END 2023-12-09 21:42 | disposition left against medical advice (07) ==
PROVIDERS: Emergency Provider Emergency Medicine; PCP Family Medicine
DX: R07.9 Chest pain, unspecified (principal); R06.02 Shortness of breath; F17.210 Nicotine dependence, cigarettes, uncomplicated; J44.9 Chronic obstructive pulmonary disease, unspecified; I11.9 Hypertensive heart disease without heart failure; I25.119 Atherosclerotic heart disease of native coronary artery with unspecified angina pectoris; E78.5 Hyperlipidemia, unspecified
CPT/HCPCS: 71046; 80053; 84484; 85025; 93005; 99284

== ENCOUNTER 2024-01-03 10:59 | Outpatient (CLI) | payer MEDICARE, MEDICAID, SELFPAY ==
--- NOTE | 2024-01-03 11:00 | CA_ITS ---
APPROVED REPORT EXAM: Comprehensive 2D, Doppler, and color-flow Echocardiogram [employer]: THEODORA Batista, RVS Ht: 5 ft 10 in Wt: 189lbs BSA: 2.04 BP: 125/82 mmHg Indications: Smoker, CAD, CP, HTN, HLD, SOB, Fatigue 2D Dimensions Left Atrium 3.13 cm M: 3.0 - 4.0 LA Volume 47.00 mL LA Volume Index 23.04 mL/m2 (M/F) 16-34 M-Mode Dimensions RVDd 3.15 cm (0.9-2.6) LA Diam 3.87 cm (1.9-4.0) LVDd 5.29 cm (3.5-5.7) LVDs 3.93 cm (3.5-5.7) IVSd 0.79 cm (0.6-1.1) PWd 0.89 cm (0.6-1.1) EF (Teich) 50.20% EPSs 0.54 cm FS 25.70% EDV (Teich) 134.80 mL ESV (Teich) 67.10 mL LV Diastology E Decel Time 230 (160-240 msec) E/A Ratio 0.94 MED A' 11.00 cm/s LAT A' 10.00 cm/s Aortic Valve BRIDGETT Index 1.20 cm2/m2 AoV Peak Foster. 121.0 (50-130 cm/s) AO Peak GR. 5.80 mmHg AO Mean GR. 2.90 (<5 mmHg) AO VTI 25.4 (18-25 cm) BRIDGETT (VTI) 2.51 (2.5-4.5 cm2) Mitral Valve MV A Velocity 54.0 (40-130 cm/s) E/A Ratio 0.94 Pulmonary Valve PV Peak Velocity 75.0 (50-150 cm/s) Tricuspid Valve TR P. Velocity 199.00 cm/s RAP Estimate 10.00 mmHg RVSP 25.90 mmHg Left Ventricle The left ventricle is normal size. The left ventricular systolic function is normal. The left ventricular ejection fraction is within the normal range. There is normal left ventricular wall thickness. There is normal LV segmental wall motion. The left ventricular diastolic function is normal. LVEF is 55%. Right Ventricle The right ventricle is normal size. The right ventricular systolic function is normal. Atria The left atrium size is normal. The right atrium size is normal. There is no Doppler evidence of interatrial shunt. Aortic Valve The aortic valve is mildly thickened. There is no aortic valvular stenosis. No aortic regurgitation is present. Mitral Valve The mitral valve is normal in structure. No evidence of mitral valve stenosis. Trace mitral regurgitation. Tricuspid Valve The tricuspid valve leaflets are thin and pliable. Mild tricuspid regurgitation. RVSP is 20???25 mmHg. Pulmonic Valve The pulmonary valve is normal in structure. Trace pulmonic regurgitation. Great Vessels The aortic root is normal in size. The ascending aorta is borderline dilated, measuring 3.7 cm in diameter. IVC is normal in size and collapses >50% with inspiration. Pericardium There is no pericardial effusion. Other Information Study Quality: Adequate Conclusion Normal biventricular systolic function. Mild TR. The ascending aorta is borderline dilated, measuring 3.7 cm in diameter. Electronically signed by : Wendy Diana MD 01/07/2024 13:34:01
== END 2024-01-03 23:59 | disposition home or self-care (01) ==
LOC: RT 11:00
PROVIDERS: PCP Family Medicine; Visit Provider Nurse Practitioner Family
DX: I25.10 Atherosclerotic heart disease of native coronary artery without angina pectoris (principal); R06.02 Shortness of breath; R07.9 Chest pain, unspecified; F17.210 Nicotine dependence, cigarettes, uncomplicated
CPT/HCPCS: 93306

== ENCOUNTER 2024-01-09 07:32 | Outpatient (CLI) | payer MEDICARE, MEDICAID, SELFPAY ==
[2024-01-09] VITALS (7 sets, daily range): BP systolic 95–139; BP diastolic 63–96; PULSE 48–62; RESP 18; TEMP 36.4; O2SAT 95–100; BMI 27.2
--- NOTE | 2024-01-09 07:33 | CT_ITS ---
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 A noncontrast coronary calcium scan was performed. A CT attenuation threshold of 130 Hounsfield units (HU) was used for the detection of calcium in contiguous voxels of 1 sq mm in area to be counted as individual lesions. Bolus tracking in the ascending aorta with a threshold of 180 HU was performed. Immediately afterwards, ECG synchronized cardiac CT was then performed from the cardiac base to apex using retrospective gating with ECG tube current modulation. A total of 85 mL of Isovue 370 mg/mL contrast medium was administered at 5 mL/sec followed by a saline flush using a biphasic injection protocol. A tube voltage of 120 KVp was used. The patient received the following medications prior to the cardiac CT. 25mg of oral metoprolol 0.8 mg of sublingual nitroglycerin The average heart rate at the time of acquisition was 50 bpm and regular. Image Reconstruction Transaxial images were reconstructed at 0.67 mm slide thickness. Data was reviewed interactively on an advanced workstation capable of 2 and 3-dimensional displays in all conventional reconstruction formats, including multiplanar reformations, maximum intensity projections, curved multiplanar reformations, and volume rendered reconstructions. When applicable, selected routine images describing the relevant coronary anatomy and pathology were saved and sent to PACS. Complications None Technical Quality Overall image quality was good. Coronary artery opacification was adequate. Total DLP (Dose-Length Product) is 2120.7 mGy-cm. The reported value represents the total of one or more individual components during the CT acquisition of this date and at this time, and as such, the same value may appear in more than one CT report depending on the interpreting/reporting physicians. COMPARISON None FINDINGS CT Coronary Calcium Scoring LMA (Left Main Artery) = 0 LAD (Left Anterior Descending) = 0 LCX (Left Coronary Circumflex) = 0 RCA (Right Coronary Artery) = 66 Total Calcium Score = 66 using the AJ-130 method. The observed calcium score of 66 is at 41st percentile for subjects of the same age, sex, and race/ethnicity. The interpretation of the calcium heart score is based on the following continuum*: 0 = no calcified plaque detected (risk of coronary artery disease is very low ??? less than 5%) 1-10 = calcium detected in extremely minimal levels (risk of coronary diseases is still low ??? less than 10%) 11-100 = mild levels of plaque detected with certainty (mild or minimal narrowing of heart arteries is likely) 101-400 = definite,at least moderate levels of plaque detected (relatively high risk of a heart attack within 3-5 years) >401-999 = extensive levels of plaque detected (high risk of heart attack, high levels of vascular disease are present, high likelihood of at least one significant coronary narrowing) *The calcium heart score quantifies the burden of coronary calcification/plaque in the coronary arteries. The calcium heart score is not able to evaluate the presence or burden of non-calcified (i.e. soft) plaque. There is no identifiable calcification in the aortic valve, mitral annulus or mitral valve, pericardium, or myocardium. Coronary CT Angiography The coronary arterial system is right dominant. Quantitative Stenosis Grading: Left Main (LM): The left main originates normally from the left sinus of Valsalva. The LM bifurcates into the left anterior descending artery and left circumflex artery. The LM is patent with no evidence of atherosclerosis. Left Anterior Descending (LAD) and Diagonal Branches: The LAD gives off 3 diagonal branch(es). The LAD and its branches are patent with no evidence of atherosclerosis. There is no evidence of LAD-myocardial bridge. Left Circumflex (LCX) and Obtuse Marginals (OM): The LCX gives off 1 Obtuse Marginal (OM) branch(es). The LCX and its branches are patent with no evidence of atherosclerosis. Right Coronary Artery (RCA): The RCA originates normally from the right sinus of Valsalva. The RCA gives off a posterior descending artery (PDA) and posterolateral (PL) branches. There is mixed calcified/noncalcified plaque in the proximal RCA, with up to 25% luminal stenosis. Non-Coronary Cardiac Findings: Analysis of the left ventricular (LV) structure and function was performed after 3-D reconstruction of the LV from axial images, with user-corrected automatic contouring for assessment of LV volumes and user-defined reconstruction from oblique planes for measurement of 3-D cardiac structure and function. -The left ventricle systolic function is normal. -There is a small perfusion defect in the distal LA appendage, which likely represents early image acquisition after IV contrast administration. However, true perfusion defect cannot be entirely ruled out. Two right pulmonary veins and two left pulmonary veins drain normally into the left atrium. -No pericardial thickening or calcification. -Central and branch pulmonary arteries in the [id number] are unremarkable. -Thoracic aorta within the visualized thoracic aortic-branches in the [id number] is unremarkable. Extracardiac Structures No significant extra-cardiac findings. Note, however, that this study is focused on the cardiac findings. IMPRESSION -Presence fo coronary calcification with an Agatston score = 66 using the AJ-130 method. -The observed calcium score of 66 is at 41st percentile for subjects of the same age, sex, and race/ethnicity. -Miminimal non-obstructive atherosclerotic disease in the proximal RCA, but no evidence of significant flow-limiting atherosclerosis. -CAD-RADS 1. Management recommendations per ACC/AHA guidelines*, as clinically appropriate. *Recommendations: CAD RADS 0: Reassurance. Consider non-atherosclerotic causes of chest pain. CAD RADS 1: Consider non-atherosclerotic causes of chest pain. Consider preventive therapy and risk factor modification. CAD RADS 2: Consider non-atherosclerotic causes of chest pain. Consider preventive therapy and risk factor modification, particularly for patients with nonobstructive plaque in multiple segments. CAD RADS 3: Consider further functional testing. Consider symptom-guided anti-ischemic and preventive pharmacotherapy as well as risk factor modification per published guideline statements. CAD RADS 4A: Consider further functional testing or invasive coronary angiography with revascularization per published guideline statements. Consider symptom-guided anti-ischemic and preventive pharmacotherapy as well as risk factor modification per published guideline statements. CAD RADS 4B: Invasive coronary angiography recommended with revascularization per published guideline statements. Consider symptom-guided anti-ischemic and preventive pharmacotherapy as well as risk factor modification per published guideline statements. CAD RADS 5: Consider invasive angiography and/or viability assessment with revascularization per published guideline statements. Consider symptom-guided anti-ischemic and preventive pharmacotherapy as well as risk factor modification per published guideline statements. CRITICAL RESULT None COMMUNICATION Per this written report The coronary and cardiac findings of this CCTA were reviewed, reported, and signed by Alex Diana MD (Mac Developer) Conclusion Electronically signed by : Wendy Diana MD 01/14/2024 16:10:05
[2024-01-09] MEDS: METOPROLOL TARTRATE 25MG TABLET 25 MG (08:13)
[2024-01-09 08:24] LABS: Anion Gap 9.9 mEq/L (5-15); Blood Urea Nitrogen 31 mg/dl (9-20); Calcium 9.5 mg/dl (8.4-10.2); Carbon Dioxide 34 mmol/L (22.0-30.0); Chloride 100 mmol/L (98-107); Creatinine Clearance Estimated 78 mL/min (50-200); Estimated Glomerular Filt Rate 67 ml/min (>60); GFR (African American) 81 ML/MIN (>60); Glucose 100 mg/dl (74-100); Potassium 3.9 mmoL/L (3.5-5.1); Sodium 140 mmol/L (136-145)
[2024-01-09] MEDS: NITROGLYCERIN 0.4MG SL TABLET 0.800000000000000044 MG SL (08:50)
[2024-01-09] MEDS: IOPAMIDOL-370 (76%);100ML BOTTLE 85 ML IV (09:11)
[2024-01-09] MEDS: SODIUM CHLORIDE 0.9% 10ML SYR (RAD ONLY) 10 ML IV (09:11)
[2024-01-09] MEDS: 0.9 % SODIUM CHLORIDE 50 ML VIAL 40 ML IV (09:11)
== END 2024-01-09 09:16 | disposition home or self-care (01) ==
PROVIDERS: PCP Family Medicine; Visit Provider Nurse Practitioner Family
DX: I25.10 Atherosclerotic heart disease of native coronary artery without angina pectoris (principal); R06.02 Shortness of breath; R07.9 Chest pain, unspecified
CPT/HCPCS: 75574; 80048; Q9967

== ENCOUNTER 2024-03-02 11:03 | Outpatient (CLI) | payer MEDICARE, MEDICAID, SELFPAY ==
[2024-03-02 15:46] LABS: Microscopic, Urine URINE MICROSCOPIC (MICROSCOPIC)
[2024-03-02 16:01] LABS: Appearance,Urine CLEAR (Clear); Bilirubin,Urine Negative (Negative); Blood, Urine 1+ (Negative); Color,Urine YELLOW (Yellow); Glucose,Urine (UA) Negative (Negative); Ketones,Urine Negative (Negative); Leukocyte Esterase,Urine Negative (Negative); Nitrate,Urine Negative (Negative); PH,Urine 6.5 (5.0-8.5); Protein,Urine Negative (Negative); Urobilinogen,Urine 0.2 EU/dl (0.2)
[2024-03-02 16:24] LABS: Bacteria,Urine Trace /lpf; RBC,Urine Occasional #/hpf (0-3); Squamous Epithelial Cell,Urine Occasional #/hpf (0-5)
== END 2024-03-02 23:59 | disposition home or self-care (01) ==
LOC: LAB.DROPOF 03-03 11:03
PROVIDERS: PCP Urology; Visit Provider Urology
DX: R31.9 Hematuria, unspecified (principal)
CPT/HCPCS: 81001

== ENCOUNTER 2024-04-29 13:04 | Outpatient (CLI) | payer MEDICARE, MEDICAID, SELFPAY ==
--- NOTE | 2024-04-29 13:12 | CT_ITS ---
FINAL REPORT TECHNIQUE: Before and after the administration of intravenous contrast, axial images through the chest were performed by computed tomography. This study was performed with techniques to keep radiation doses as low as reasonably achievable, (ALARA). Individualized dose reduction techniques using automated exposure control or adjustment of mA and/or kV according to the patient's size were employed. CLINICAL HISTORY: lung nodule COMPARISON: 10/01/2023 FINDINGS: CT CHEST WITH AND WITHOUT CONTRAST: There is no axillary adenopathy., Also seen on the prior CT of September. The heart size is normal. There is no pericardial or pleural effusion. There is a subtle density in the right lower lobe measuring 5 mm in size, best seen on image #36, stable. There is a left lower lobe ill-defined nodular opacity, slightly decreased in size measuring 5 mm, best seen on image #38. There is bilateral adrenal enlargement, larger on the left than on the right, likely adrenal hyperplasia. Calcified granulomas are noted in the liver and the spleen. IMPRESSION: Nodular opacities in the right lower lobe and left lower lobe are stable or slightly decreased in size when compared to the prior exam of 10/09/2023. No new nodules or masses are identified. Reviewed, Interpreted and Dictated by Ramón Spann MD Transcribed by Jeane Cummings Authenticated and [facility]
[2024-04-29 13:24] LABS: Blood Urea Nitrogen 18 mg/dl (9-20); Estimated Glomerular Filt Rate 84 ml/min (>60); GFR (African American) 102 ML/MIN (>60)
[2024-04-29] MEDS: IOPAMIDOL-370 (76%);100ML BOTTLE 75 ML IV (13:55)
[2024-04-29] MEDS: SODIUM CHLORIDE 0.9% 10ML SYR (RAD ONLY) 10 ML IV (13:55)
== END 2024-04-29 23:59 | disposition home or self-care (01) ==
LOC: RAD 13:05
PROVIDERS: PCP Family Medicine; Visit Provider Family Medicine
DX: E78.2 Mixed hyperlipidemia (principal); R91.1 Solitary pulmonary nodule
CPT/HCPCS: 36415; 71270; 82565; 84520; Q9967

== ENCOUNTER 2025-01-07 11:20 | Outpatient (CLI) | payer MEDICARE, MEDICAID, SELFPAY ==
[2025-01-07 19:05] LABS: Basophils % 0.3 % (0.1-2.0); Eosinophils % 0.7 % (0.1-12.0); Hematocrit 44.5 % (42.0-52.0); Immature Granulocytes # 0.02 10^3uL; Immature Granulocytes % 0.3 %; Lymphocytes # 1.4 K/mm3 (0.7-4.5); Lymphocytes % 23.3 % (10-50); Mean Corpuscular HGB Conc 33.7 g/dL (31.8-35.4); Mean Corpuscular Hemoglobin 29.5 pg (27.0-31.2); Mean Corpuscular Volume 87.4 fl (80-94); Mean Platelet Volume 10.9 fl (7.4-10.4); Monocytes # 0.3 K/mm3 (0.1-1.0); Monocytes % 5.8 % (1.7-9.3); Neutrophils # 4.1 K/mm3 (1.8-7.8); Neutrophils % 69.6 % (37.0-80.0); Nucleated Red Blood Cells # 0 10^3/uL; Nucleated Red Blood Cells % 0 %; Platelet Count 243 K/mm3 (142-424); Red Blood Count 5.09 M/mm3 (4.60-6.20); Red Cell Distribution Width 13.4 % (11.5-17.5); White Blood Count 5.8 K/mm3 (4.8-10.8)
[2025-01-07 19:41] LABS: Alanine Aminotransferase 20 U/L (12-78); Albumin Level 4.4 g/dl (3.5-5.0); Albumin/Globulin Ratio 1.5 (1.1-1.8); Alkaline Phosphatase 76 U/L (38-126); Anion Gap 10.2 mEq/L (5-15); Aspartate Amino Transferase 31 U/L (17-59); Bilirubin,Total 0.8 mg/dl (0.2-1.3); Blood Urea Nitrogen 22 mg/dl (9-20); Calcium 9.4 mg/dl (8.4-10.2); Carbon Dioxide 27 mmol/L (22.0-30.0); Chloride 102 mmol/L (98-107); Chol/HDL Ratio 2.7 (1-3.5); Cholesterol 181 mg/dl (140-200); Estimated Glomerular Filt Rate 84 ml/min (>60); GFR (African American) 101 ML/MIN (>60); Globulin 2.9 g/dL (1.3-3.2); Glucose 99 mg/dl (74-100); HDL Cholesterol 67 mg/dl (40-60); Potassium 4.2 mmoL/L (3.5-5.1); Sodium 135 mmol/L (136-145); Total Protein,Serum 7.3 g/dl (6.3-8.2); Triglycerides 55 mg/dl (30-150); VLDL Cholesterol 11 mg/dL (0-40)
[2025-01-07 19:54] LABS: Direct LDL Cholesterol 96.67 mg/dL (100-129)
[2025-01-07 20:07] LABS: 25-OH Vitamin D, Total 31.4 ng/mL (30-100)
[2025-01-07 20:17] LABS: Prostate Specific Ag Screen 1.2 ng/ml (0.0-4.0); Thyroid Stimulating Hormone 0.79 uIU/mL (0.465-4.68)
[2025-01-07 20:29] LABS: Hemoglobin A1C 5.6 % (4.0-6.0)
== END 2025-01-07 23:59 | disposition home or self-care (01) ==
LOC: LAB.DROPOF 01-08 13:38
PROVIDERS: PCP Family Medicine; Visit Provider Family Medicine
DX: Z00.00 Encounter for general adult medical examination without abnormal findings (principal)
CPT/HCPCS: 80053; 80061; 82306; 83036; 84443; 85025; G0103